=== PATIENT | female | born 1980 | race Caucasian/White ===

== ENCOUNTER 2018-03-11 10:43 | Day surgery (SDC) | payer OTHER ==
--- NOTE | 2018-03-04 21:10 | HP ---
AMENDED REPORT NOW INCLUDES COSIGNER DESIGNATION - ESIGNED BEFORE ADJUSTMENT PREOPERATIVE HISTORY AND PHYSICAL: DATE OF ADMISSION/SURGERY: 03/11/18 DATE OF OFFICE VISIT/ENCOUNTER: 02/24/18 ATTENDING SURGEON: Latonya Grady MD * (DICTATED BY RAKESH DAILY) PROCEDURE: Left index finger radial collateral ligament repair. CHIEF COMPLAINT: Persistent pain at MP joint of left index finger after injury. HISTORY OF PRESENT ILLNESS: This is a 37-year-old female, who sustained injury to her left index finger back on 09/21/17. She was trying to buckle her child' s car seat in the car and she accidentally had an ulnar deviation force finger. She felt a crack and a pop at the MP joint. Since then, she has had persistent pain. She has tried to treat it conservatively using luigi tape and rest; however, the pain has persisted. She is quite bothered by it when she catches her finger on something and feels very hesitant to go without luigi taping. She had an MRI which was consistent with the tear of the insertion of the radial collateral ligament at the joint. She has consented to proceed with surgical intervention at this time in the form of a left index finger radial collateral ligament repair. PAST MEDICAL HISTORY: 1. Ulcerative colitis. 2. Endometriosis. PAST SURGICAL HISTORY: 1. Left knee arthroscopy. 2. Laparoscopy. 3. Cholecystectomy. 4. x2. CURRENT MEDICATIONS: 1. Lialda 1.2 g 2 tabs daily. 2. Ortho Tri-Cyclen daily. 3. Multivitamins. ALLERGIES: IMURAN causes liver dysfunction; IBUPROFEN, high GI sensitivity; LATEX, skin irritation. FAMILY MEDICAL HISTORY: Skin cancer. SOCIAL HISTORY: The patient works at [employer]. She is the corporate communications manager for performing [employer] She denies tobacco use. Denies recreational drug use. She drinks alcohol on occasion. REVIEW OF SYSTEMS: Negative for general, cephalic, integumentary, cardiovascular, respiratory, GI, , other musculoskeletal, neurologic, hematologic, and endocrine symptoms. Infectious Disease: Negative for history of MRSA, hepatitis C, and HIV. PHYSICAL EXAMINATION GENERAL: Well-developed, well-nourished, 37-year-old female, in no acute distress. VITAL SIGNS: Height 5 feet 8 inches, weight 192 pounds, pulse rate 78, blood pressure 120/78. HEENT: Normocephalic, atraumatic. Pupils are equal, round, and reactive to light and accommodation. Throat is clear. NECK: Supple. No palpable lymph nodes. PULMONARY: Lungs are clear to auscultation bilaterally. No wheezes, rales, or rhonchi. CARDIOVASCULAR: Regular rate and rhythm. S1, S2. No murmurs, rubs, or gallops. No edema. ABDOMEN: Positive bowel sounds, soft, nontender. NEUROLOGICAL: Alert and oriented x3. Cranial nerves II through XII are intact. Sensation is intact to light touch. MUSCULOSKELETAL: On exam of her left index finger, there is mild swelling at the MP joint. Minimal tenderness to palpation at the collateral ligaments and marked pain with stressing at the radial and ulnar collateral ligaments. She has ability to flex finger but increased pain and trouble making a tight fist. She has full extension. Skin is intact. Neurovascular function is intact. IMAGING STUDIES: X-rays, AP, lateral, and oblique of the left index finger appear normal. MRI is consistent with a tear of the insertion of the left index finger radial collateral ligament . IMPRESSION: Left index finger MP joint tear of the radial collateral ligament. PLAN: The patient is scheduled to undergo left index finger radial collateral ligament repair with Dr. Grady on 03/11/18. She will return to the office 10 days postop for followup and suture removal. A prescription for Ultracet was e- scribed to the patient's pharmacy for postoperative pain management. RAKESH DAILY [id number]/[facility] #: [id number] KARENA
[~2018-03-11 10:43] MED LIST: Buffered Lidocaine 0.9% SYRIN* 5 ML/SYR SYRINGE INTRADERM ONE
[2018-03-11] MEDS ORDERED: ceFAZolin 2 GM PREMIX (*) 2 GM/50 ML BAG IVPB ONE (10:50)
[2018-03-11] MEDS ORDERED: Midazolam* 1 MG/ML 5 ML VIAL (5 MG) ONE (12:31)
[2018-03-11] MEDS ORDERED: fentaNYL* 50 MCG/ML 2 ML VIAL (100 MCG VIAL) ONE (12:31)
[2018-03-11] MEDS ORDERED: ROPIVACAINE 5 MG/ML 30 ML BTL (0.5%) ONE (12:43)
[2018-03-11] MEDS ORDERED: Propofol* 10 MG/ML 20 ML BTL IV PUSH ONE (13:07)
[2018-03-11] MEDS ORDERED: oxyCODONE/Acetamin 5/325 MG* TAB PO PRN (13:36)
[2018-03-11] MEDS ORDERED: Naloxone* 0.4 MG/ML 1 ML VIAL IV PRN (13:36)
[2018-03-11] MEDS ORDERED: fentaNYL* 50 MCG/ML 2 ML VIAL (100 MCG VIAL) IV PRN (13:36)
[2018-03-11] MEDS ORDERED: Acetaminophen TAB* 325 MG PO PRN (13:36)
[2018-03-11] MEDS ORDERED: Ondansetron INJ* 2 MG/ML VIAL IV PRN (13:36)
[2018-03-11 13:38] VITALS: BP 118/66
--- NOTE | 2018-03-12 03:14 | OP ---
DATE OF OPERATION: 03/11/18 [facility] DATE OF : 84 SURGEON: Latonya Grady MD SHINGLE SHEARING MACHINE OPERATOR: RAKESH Hdz ANESTHESIA: Local MAC. PRE-OP DIAGNOSIS: Radial collateral ligament tear of the left index finger MP joint. POST-OP DIAGNOSIS: Radial collateral ligament tear of the left index finger MP joint. OPERATIVE PROCEDURE: Left index finger radial collateral ligament repair. ESTIMATED BLOOD LOSS: Zero. TOURNIQUET TIME: Approximately 25 minutes. INDICATIONS FOR PROCEDURE: Ashley is a 37-year-old female, who injured her left index finger when using her child's car seat. She has persistent pain at the radial aspect of the MP joint and MRI shows increased uptake at the insertion of the right radial collateral ligament on the proximal phalanx. The patient has failed conservative treatment and presents now for repair of the radial collateral ligament. DESCRIPTION OF PROCEDURE: The patient was brought to the operating room, was given a sedation anesthetic and a digital block with 10 cc of 0.5% plain ropivacaine to the left index finger. The skin of her left hand and forearm was prepped and draped in the usual sterile fashion. The hand and forearm were exsanguinated and the tourniquet elevated to 250 mmHg. A longitudinal incision was made on the radial aspect of the index finger MP joint. We dissected bluntly through the subcutaneous tissue. Branches of the radial sensory nerve were located and were retracted by the metal forger's assistant, Alisha Broderick. The extensor sosa was incised longitudinally and I could see at the insertion of the radial collateral ligament there was some tearing. The ligament was subperiosteally dissected off of the proximal phalanx and then a rongeur was used to create a bleeding surface on the radial aspect of the bone. A hole for a mini-Mitek suture anchor was drilled and the anchor was placed in the hole and then the ligamentous tissue was secured down to the bony bleeding surface. The extensor sosa was then repaired incorporating the ligament tissue as well with 2-0 Ethibond suture. The wound was irrigated and the skin edges reapproximated with 4-0 nylon suture. The wound was dressed with Xeroform, 4x4 , Webril, and an Alumafoam splint. The patient tolerated the procedure well was brought to the recovery room in good condition. [id number]/[facility] #: [id number] [facility]
== END 2018-03-11 14:00 | disposition home or self-care (01) ==
LOC: OREAST 10:43
PROVIDERS: ATTEND Orthopaedic Surgery
DX: S63.651A Sprain of metacarpophalangeal joint of left index finger, initial encounter (principal); X50.0XXA Overexertion from strenuous movement or load, initial encounter; Y93.89 Activity, other specified; Y92.89 Other specified places as the place of occurrence of the external cause; K51.90 Ulcerative colitis, unspecified, without complications; J30.89 Other allergic rhinitis
CPT/HCPCS: 81025; C1713; J0690; J2250; J2704; J2795; J3010